=== PATIENT | male | born 1975 | race Caucasian/White ===

== ENCOUNTER 2017-07-08 17:23 | Emergency (ER) | payer SELFPAY ==
[2017-07-08 17:35] VITALS: BP 146/87
[2017-07-08] MEDS ORDERED: PREDNISONE 20 MG TABLET PO ONE (18:04)
[2017-07-08] MEDS ORDERED: HYDROCODONE/ACETAMINOPHEN 5-325 MG 6 TAB/DSPK PO PRN (18:04)
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
[2017-07-08] MEDS ORDERED: KETOROLAC TROMETHAMINE 60 MG/2 ML SDV IM ONE (18:25)
== END 2017-07-08 18:15 | disposition home or self-care (01) ==
LOC: ER 17:23
DX: M54.41 Lumbago with sciatica, right side (principal); X50.0XXA Overexertion from strenuous movement or load, initial encounter; Y93.89 Activity, other specified; I10 Essential (primary) hypertension
CPT/HCPCS: 99283; J7512

== ENCOUNTER 2019-10-21 14:09 | Emergency (ER) | payer SELFPAY ==
--- NOTE | 2019-10-21 15:43 | ER Document Report ---
ED Medical Screen (RME) - General Chief Complaint: Suicidal Ideation Stated Complaint: FALL/RIB PAIN,ANXIOUS Time Seen by Provider: 10/21/19 15:37 Primary Care Provider: NUPUR RIVERA JR, MD [Primary Care Provider] - Follow up as needed Notes: Patient is a 43-year-old male who presents emergency department with a chief complaint of anxiety and SI. Patient reports that since 2004 he has battled with panic attacks and anxiety. Patient reports his mother last week which seemed to exacerbate his symptoms. Patient reports that he did take 2 hits of meth and drink alcohol last week. Patient reports he woke up in the hospital in [place]. Patient reports he was told he did fall in the shower and was evaluated for that. Patient reports he continues to have right rib pain. Patient reports he was diagnosed with a right rib contusion. Patient does have a specific plan to hurt himself but states he is "tired of living. " Patient did attempt to take someone else's Xanax last week at the . TRAVEL OUTSIDE OF THE [place] IN LAST 30 DAYS: No - Related Data Allergies/Adverse Reactions: amoxicillin [Amoxicillin] Allergy (Verified 10/21/19 15:28) Penicillins Allergy (Verified 10/21/19 15:28) Home Medications: TRAMADOL PRN Past Medical History - Social History Chew tobacco use (# tins/day): No Drug Abuse: Methamphetamine - Past Medical History Cardiac Medical History: Reports: Hx Hypertension Pulmonary Medical History: Reports: Hx Pneumonia - collapsed lung? Renal/ Medical History: Denies: Hx Peritoneal Dialysis - Immunizations Hx Diphtheria, Pertussis, Tetanus Vaccination: Yes Course - Re-evaluation Re-evalutation: 10/21/19 15:43 We will initiate IVC standard protocol. I have greeted and performed a rapid initial assessment of this patient. A comprehensive ED assessment and evaluation of the patient, analysis of test results and completion of the medical decision making process will be conducted by additional ED providers. Doctor's Discharge - Discharge Referrals: NUPUR RIVERA JR, MD [Primary Care Provider] - Follow up as needed
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
[2019-10-21] MEDS ORDERED: NAPROXEN 250 MG TABLET PO ONE (15:57)
--- NOTE | 2019-10-21 17:06 | RADIOLOGY REPORT (SQ) ---
EXAM DESCRIPTION: CHEST 2 VIEWS COMPLETED DATE/TIME: 10/21/2019 4:53 pm REASON FOR STUDY: bilateral rib pain, fall COMPARISON: None. EXAM PARAMETERS: NUMBER OF VIEWS: two views TECHNIQUE: Digital Frontal and Lateral radiographic views of the chest acquired. RADIATION DOSE: NA LIMITATIONS: none FINDINGS: LUNGS AND PLEURA: No opacities, masses or pneumothorax. No pleural effusion. MEDIASTINUM AND HILAR STRUCTURES: No masses or contour abnormalities. HEART AND VASCULAR STRUCTURES: Heart normal size. No evidence for failure. BONES: No acute findings. HARDWARE: None in the chest. OTHER: No other significant finding. IMPRESSION: NO ACUTE RADIOGRAPHIC FINDING IN THE CHEST. TECHNICAL DOCUMENTATION: JOB ID: [id number] 2010 [employer]- All Rights Reserved Reading location - IP/workstation name: [email or web address]
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
[2019-10-21] MEDS: BUSPIRONE HCL 10 MG TABLET PO SCH (18:10)
[2019-10-21] MEDS: VENLAFAXINE HCL 37.5 MG CAP.SR.24H PO SCH (18:11)
[2019-10-21 18:18] LABS: ABSOLUTE BASOPHILS # (AUTO) 0.1 10^3/uL (0.0-0.2); ABSOLUTE EOSINOPHILS # (AUTO) 0.1 10^3/uL (0.0-0.6); ABSOLUTE LYMPHOCYTES (AUTO) 1.8 10^3/uL (0.5-4.7); ABSOLUTE MONOCYTES (AUTO) 0.7 10^3/uL (0.1-1.4); ABSOLUTE NEUT (AUTO) 11.1 10^3/uL (1.7-8.2); BASOPHILS % (AUTO) 0.6 % (0-2); EOSINOPHILS % (AUTO) 0.9 % (0-6); HEMOGLOBIN 14.6 g/dL (13.5-17.0); LYMPHOCYTES % (AUTO) 12.9 % (13-45); MEAN CORPUSCULAR HGB CONC 34.9 g/dL (32.0-36.0); MEAN CORPUSCULAR VOLUME 89 fl (80-97); MONOCYTES % (AUTO) 4.9 % (3-13); PLATELET COUNT 243 10^3/uL (150-450); RED BLOOD COUNT 4.72 10^6/uL (4.35-5.55); RED CELL DISTRIBUTION WIDTH 12.6 % (11.5-14.0); SEGMENTED NEUTROPHILS % (AUTO) 80.7 % (42-78); TOTAL CELLS COUNTED % (AUTO) 100 %; WHITE BLOOD COUNT 13.7 10^3/uL (4.0-10.5)
[2019-10-21 18:30] LABS: ALBUMIN 4.2 g/dL (3.5-5.0); ALKALINE PHOSPHATASE 96 U/L (38-126); ANION GAP 10 (5-19); ASPARTATE AMINO TRANSFERASE 33 U/L (17-59); BILIRUBIN,DIRECT 0.2 mg/dL (0.0-0.4); BILIRUBIN,TOTAL 0.9 mg/dL (0.2-1.3); BLOOD UREA NITROGEN 12 mg/dL (7-20); CALCIUM 9.3 mg/dL (8.4-10.2); CARBON DIOXIDE 23 mmol/L (22-30); CHLORIDE 107 mmol/L (98-107); GLUCOSE 121 mg/dL (75-110); POTASSIUM 3.7 mmol/L (3.6-5.0); TOTAL PROTEIN 7.4 g/dL (6.3-8.2)
[2019-10-21 18:32] LABS: ACETAMINOPHEN < 10 ug/mL (10-30); ALCOHOL < 10 mg/dL (NONE DETECTED); SALICYLATE < 1.0 mg/dL (2.0-20.0)
--- NOTE | 2019-10-21 20:16 | EKG REPORT ---
SEVERITY:- NORMAL ECG - SINUS RHYTHM : Confirmed by: Theo Palafox MD 21-Oct-2019 20:15:38
[2019-10-22 00:54] LABS: APPEARANCE,URINE CLEAR; BILIRUBIN,URINE NEGATIVE (NEGATIVE); COLOR,URINE YELLOW; GLUCOSE, URINE NEGATIVE (NEGATIVE); KETONES,URINE NEGATIVE (NEGATIVE); LEUKOCYTE ESTERASE,URINE NEGATIVE (NEGATIVE); NITRITE,URINE NEGATIVE (NEGATIVE); PROTEIN,URINE NEGATIVE (NEGATIVE); URINE SPECIFIC GRAVITY 1.018; UROBILINOGEN,URINE NEGATIVE mg/dL (<2.0)
[2019-10-22 01:09] LABS: URINE BARBITURATES SCREEN NEGATIVE; URINE COCAINE SCREEN NEGATIVE; URINE MARIJUANA (THC) SCREEN NEGATIVE; URINE METHADONE SCREEN NEGATIVE; URINE PHENCYCLIDINE SCREEN NEGATIVE
[2019-10-22 02:09] LABS: URINE BENZODIAZEPINES SCREEN UNCONFIRMED POSITIVE
[2019-10-22 06:46] VITALS: BP 137/88
[2019-10-22] MEDS: BUSPIRONE HCL 10 MG TABLET PO SCH (09:45)
[2019-10-22] MEDS: VENLAFAXINE HCL 37.5 MG CAP.SR.24H PO SCH (09:46)
--- NOTE | 2019-10-22 10:17 | ER Document Report ---
Doctor's Note Notes: 10/22/19 10:05 PHYSICAL EXAMINATION: GENERAL: Well-appearing and in no acute distress. HEAD: Atraumatic, normocephalic. EYES: sclera anicteric, conjunctiva are normal. ENT: nares patent. Moist mucous membranes. NECK: Normal range of motion, supple LUNGS: CTAB and equal. No wheezes rales or rhonchi. Patient with tenderness to anterior aspect of lower costal margin and lateral rib area on the right HEART: Regular rate and rhythm without murmurs ABDOMEN: Soft, nontender, normal bowel sounds, no guarding. EXTREMITIES: Normal range of motion, No cyanosis. NEUROLOGICAL: Cranial nerves grossly intact. Normal speech. . PSYCH: Normal mood, normal affect. SKIN: Warm, Dry, normal turgor, no rashes or lesions noted Patient resting calmly on stretcher denies any complaints at this time. Patient's laboratory tests and vital signs reviewed. Patient does have elevated white blood cell count with a shift. Patient reports recent rib injury in which he had a fall. Patient reports mild cough and no shortness of breath. Patient does complain of continued discomfort here and concerned about likely pneumonia. Patient's chest x-ray reviewed, no acute findings noted on x-ray. 10/22/19 12:[address] scan report. Patient with a fractured sixth rib as well as distal ends of seventh eighth and ninth. Consulted with Dr. Bustos regarding patient's CT report. Agrees with discharge plan of care at this time. Patient with stable vital signs and no hypoxia. Patient has been cleared from mental health team for discharge and they advised a 2-week prescription of Effexor and BuSpar and follow-up with a mental health provider on outpatient basis. Patient does not meet IVC criteria at this time.
--- NOTE | 2019-10-22 11:42 | PSYCHOLOGICAL NOTE ---
Psych Note - Psych Note Date seen by psych provider: 10/22/19 Time seen by psych provider: 08:23 Psych Note: Reason For Consult: Anxiety, suicidal ideation Consent Permissions: neighbor Kane, please not information on toxicology, but all other information alright Check in conducted with patient Patient presentation has significantly improved in regards to his mental health. Patient denies any thoughts of wanting to harm himself. When discussing follow-up with outpatient mental health and substance abuse treatment he discloses that he will think about it as he currently feels he will be able to abstain. Patient discloses that now that his mother has he does have to move out of her home and only has until the to move his stuff. He plans to move his belongings into, [facility], his niece's home. Medication recommendations per [facility]'s contracted psychiatrist Dr. Derrek WALLIS are as follows Effexor 37.5 mg daily BuSpar 5 mg twice daily Impression\plan: Patient is recommended for rescind of 24-hour petition for evaluation. Patient's neighbor, Kane, confirms he would like to be part of patient's plan of care i.e. no access to medications weapons and follow through with mental health recommendations. Patient denies any thoughts of wanting to harm himself. Patient is highly encouraged to follow-up with outpatient mental health services for grief and medication management and to follow-up with substance abuse treatment. Patient has been provided with local resource list of area providers including mental health and substance abuse treatment providers, detox facilities, and mobile crisis contact information. Dr. Rutherford was consulted to care management of this patient; attending physicians in agreement with recommendations and disposition.
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
[2019-10-22] MEDS ORDERED: LIDOCAINE 5% (700 MG) TRANSDERMAL ADH..PATCH TP ONE (12:18)
== END 2019-10-22 12:54 | disposition home or self-care (01) ==
LOC: ER 14:09
DX: R45.851 Suicidal ideations (principal); F41.9 Anxiety disorder, unspecified; R07.81 Pleurodynia; S22.41XA Multiple fractures of ribs, right side, initial encounter for closed fracture; W18.2XXA Fall in (into) shower or empty bathtub, initial encounter; I10 Essential (primary) hypertension; F19.10 Other psychoactive substance abuse, uncomplicated; Z88.0 Allergy status to penicillin
CPT/HCPCS: 93005; 36415; 80307 ×4; 83690; 85025; 80053; 81001; 71046; 71260; 93010; J3490 ×2